=== PATIENT | male | born 1995 | race Caucasian/White ===

== ENCOUNTER 2017-06-05 19:27 | Inpatient (IN) | payer OTHER ==
[~2017-06-05] VITALS: Ht 182.9 cm; Wt 82.1 kg
[2017-06-05] MEDS ORDERED: HYDROMORPHONE 1 MG/1 ML DISP.SYRIN IV ONE ×3 (19:45→21:30)
[2017-06-05] MEDS ORDERED: IV NORMAL SALINE 1000 ML BAG IV ONE ×2 (19:45→20:45)
[2017-06-05] MEDS ORDERED: ONDANSETRON 4 MG/2 ML VIAL IV ONE (19:45)
[2017-06-05] MEDS ORDERED: PROPOFOL 200 MG/20 ML BOTTLE IV ONE (19:45)
[2017-06-05] MEDS ORDERED: ONDANSETRON 4 MG/2 ML VIAL ONE (19:55)
[2017-06-05] MEDS ORDERED: HYDROMORPHONE 2 MG/1 ML DISP.SYRIN ONE ×4 (19:55→23:45)
[2017-06-05] MEDS ORDERED: PROPOFOL 200 MG/20 ML BOTTLE ONE (20:19)
--- NOTE | 2017-06-05 20:33 | NUR ---
Placed a short leg and sterrup on left leg as ordered by Dr Mares
--- NOTE | 2017-06-05 20:35 | NUR ---
Patient awake and talking with no distress noted
[2017-06-05 20:48] LABS: BASOPHILS # (AUTO) 0.1 K/uL (0.0-8.0); BASOPHILS % (AUTO) 0.7 % (0.0-2.0); EOSINOPHILS # (AUTO) 0.1 K/uL (0.0-0.7); EOSINOPHILS % (AUTO) 1.7 % (0.0-7.0); HEMATOCRIT 45.2 % (40-50); HEMOGLOBIN 14.9 G/DL (14.0-18.0); LYMPHOCYTES # (AUTO) 2.8 K/UL (0.8-4.8); LYMPHOCYTES % (AUTO) 33.4 % (20.5-51.5); MEAN CORPUSCULAR HGB CONC 33 g/dL (32.0-37.0); MEAN CORPUSCULAR VOLUME 96.8 FL (82.0-92.0); MONOCYTES # (AUTO) 0.5 K/UL (0.1-1.30); MONOCYTES % (AUTO) 6.1 % (0.0-11.0); NEUTROPHILS # (AUTO) 4.9 K/UL (1.8-8.9); NEUTROPHILS % (AUTO) 58.1 % (38.5-71.5); PLATELET COUNT (AUTO) 210 K/UL (150-450); RED BLOOD CELL COUNT(AUTO) 4.67 MIL/UL (4.7-6.1); WHITE BLOOD COUNT (AUTO) 8.4 K/UL (4.0-11.2)
[2017-06-05 20:56] LABS: POTASSIUM 3.5 mmol/L (3.5-5.1)
--- NOTE | 2017-06-05 21:05 | NUR ---
Dr Mares spoke with Dr Freddy gomez promotions assistant. Will eval patient in AM
--- NOTE | 2017-06-05 21:39 | NUR ---
Dr Mares spoke with Dr Villagomez for admission of patient
--- NOTE | 2017-06-05 21:50 | NUR ---
PATIENT IN ROOM WITH NO DISTRESS NOTED. INTERACTING WITH FRIENDS AT BEDSIDE
--- NOTE | 2017-06-05 22:08 | NUR ---
Transfered to 2nd floor Med Surg via jun
--- NOTE | 2017-06-05 22:10 | NUR ---
RECEIVED PATIENT FROM ER VIA GURNEY. PATIENT IS ALERT, IN NO ACUTE DISTRESS. PATIENT IS ADMITTED TO [facility] UNDER THE CARE OF DR. MORAN. DX: LEFT ANKLE DISLOCATION. BELONGING LIST DONE, ADMISSION PROCESS AND CARE PLAN INITIATED. MD NOTIFIED FOR NEW ADMISSION ORDERS. SAFETY MEASURES IN PLACE. CALL LIGHT WITHIN REACH, BED ALARM ON. WILL CONTINUE TO MONITOR. Addendum: 06/06/17 at 0137 by KARLA CRENSHAW RN ADD: SHORT LEG SPLINT AND STIRRUP ON LEFT LEG INTACT. PT ABLE TO WIGGLE TOES, NO C/O OF NUMBNESS AND TINGLING.
[2017-06-05] MEDS ORDERED: CEFAZOLIN 1 G VIAL IV ONE (22:30)
[2017-06-05] MEDS ORDERED: POTASSIUM CHLORIDE 20 MEQ in IV D5 1/2 NS 1000 ML 1,000 ML IV PRN (22:30)
[2017-06-05 22:41] VITALS: BP 151/92
[2017-06-05] MEDS ORDERED: ACETAMINOPHEN 650 MG SUPP.RECT RC PRN (22:45)
[2017-06-05] MEDS ORDERED: ONDANSETRON 4 MG/2 ML VIAL IV PRN (22:45)
--- NOTE | 2017-06-05 23:30 | NUR ---
PATIENT SIGNED CONSENT FOR PROCEDURE TOMORROW MORNING. COPY OF SIGNED CONSENT FORM PLACED IN PATIENT'S CHART.
[2017-06-05] MEDS: HYDROMORPHONE 1 MG/1 ML DISP.SYRIN IV PRN (23:36)
--- NOTE | 2017-06-06 | NUR ---
PT KEPT NPO AFTER MIDNIGHT FOR PROCEDURE IN THE MORNING PER MD'S ORDER.
[2017-06-06] MEDS ORDERED: CEFAZOLIN 1 G VIAL ONE (00:17)
[2017-06-06 03:45] LABS: *BILIRUBIN,URIN NEGATIVE (NEGATIVE); *BLOOD, URINE NEGATIVE (NEGATIVE); *CLARITY,URINE CLEAR (CLEAR); *COLOR,URINE YELLOW (YELLOW); *KETONES,URINE NEGATIVE (NEGATIVE); *PROTEIN,URINE NEGATIVE (NEGATIVE); *UROBILINOGEN,URINE 0.2 E.U./dl (NORMAL); LEUKOCYTE ESTERASE ,URINE NEGATIVE (NEGATIVE); NITRITE, URINE NEGATIVE (NEGATIVE); UGLUCOSE NEGATIVE (NEGATIVE)
[2017-06-06 04:00] LABS: BACTERIA,URINE NONE SEEN /HPF (NONE SEEN); RBC,URINE NONE SEEN /HPF (0-3); SQUAMOUS EPITHELIAL CELL,UR NONE SEEN /HPF (NONE SEEN); WBC,URINE 0-3 /HPF (0-3)
[2017-06-06] MEDS: HYDROMORPHONE 1 MG/1 ML DISP.SYRIN IV PRN (04:33)
[2017-06-06] MEDS ORDERED: HYDROMORPHONE 2 MG/1 ML DISP.SYRIN ONE (04:41)
[2017-06-06] MEDS ORDERED: CEFAZOLIN 1 G in PREMIXED 1 EACH IV SCH (05:30)
[2017-06-06] MEDS ORDERED: CEFAZOLIN 1 G in PREMIXED 1 EACH IV ONE (05:30)
[2017-06-06 06:09] VITALS: BP 127/87
--- NOTE | 2017-06-06 06:10 | NUR ---
PT TRANSPORTED BY OR STAFF/TEAM TO OR FOR PROCEDURE. PER DR. VIGIL, ANCEF 1 GRAM TO BE GIVEN IN OR. ANCEF IVPB WAS SET UP AND ENDORSED TO OR STAFF/TEAM. PATIENT IS ALERT, IN NO ACUTE DISTRESS.
[2017-06-06] MEDS ORDERED: FENTANYL CITRATE 100 MCG/2 ML AMPUL ONE (06:35)
[2017-06-06] MEDS ORDERED: MIDAZOLAM HCL 2 MG/2 ML VIAL ONE (06:36)
--- NOTE | 2017-06-06 06:45 | NUR ---
PLACED PATIENT'S PHONE IN THE CONTRABAND LOCKER #4 FOR SAFE KEEPING. WITNESSED: JEM CORTÉS RN. WILL ENDORSE TO THE ONCOMING SHIFT RN.
[2017-06-06] MEDS ORDERED: SUCCINYLCHOLINE CHLORIDE 200 MG/10 ML VIAL ONE (06:49)
[2017-06-06] MEDS ORDERED: ONDANSETRON 4 MG/2 ML VIAL ONE (07:17)
[2017-06-06 07:22] LABS: BILIRUBIN,TOTAL 1.1 mg/dL (0.2-1.0); MAGNESIUM 1.8 mg/dL (1.8-2.4); PHOSPHOROUS 3.8 mg/dL (2.5-4.9); POTASSIUM 4.3 mmol/L (3.5-5.1); TOTAL PROTEIN, SERUM 6.9 g/dL (6.4-8.2)
[2017-06-06] MEDS ORDERED: IV LACTATED RINGERS SOLUTION 1,000 ML IV PRN (07:30)
[2017-06-06] MEDS ORDERED: MEPERIDINE 25 MG/1 ML DISP.SYRIN ONE ×2 (07:35→07:49)
[2017-06-06 07:41] LABS: BASOPHILS % (AUTO) 0.2 % (0.0-2.0); EOSINOPHILS # (AUTO) 0.1 K/uL (0.0-0.7); HEMATOCRIT 44.5 % (40-50); HEMOGLOBIN 14.9 G/DL (14.0-18.0); LYMPHOCYTES # (AUTO) 1.4 K/UL (0.8-4.8); LYMPHOCYTES % (AUTO) 14.5 % (20.5-51.5); MEAN CORPUSCULAR HGB CONC 34 g/dL (32.0-37.0); MEAN CORPUSCULAR VOLUME 98.2 FL (82.0-92.0); MONOCYTES # (AUTO) 0.8 K/UL (0.1-1.30); MONOCYTES % (AUTO) 8.1 % (0.0-11.0); NEUTROPHILS # (AUTO) 7.5 K/UL (1.8-8.9); NEUTROPHILS % (AUTO) 76.2 % (38.5-71.5); PLATELET COUNT (AUTO) 208 K/UL (150-450); RED BLOOD CELL COUNT(AUTO) 4.53 MIL/UL (4.7-6.1); WHITE BLOOD COUNT (AUTO) 9.8 K/UL (4.0-11.2)
[2017-06-06] MEDS ORDERED: ONDANSETRON 4 MG/2 ML VIAL IV PRN (10:30)
[2017-06-06] MEDS ORDERED: HYDROMORPHONE 1 MG/1 ML DISP.SYRIN IV PRN (10:30)
[2017-06-06 11:29] VITALS: BP 142/91
[2017-06-06] MEDS: HYDROMORPHONE 2 MG/1 ML DISP.SYRIN IV PRN ×2 (11:30→17:04)
[2017-06-06] MEDS ORDERED: LIDOCAINE-MPF 2% 5 ML VIAL MC ONE (14:29)
[2017-06-06] MEDS ORDERED: IV NORMAL SALINE 1000 ML BAG IV ONE (14:29)
[2017-06-06] MEDS ORDERED: PROPOFOL 200 MG/20 ML BOTTLE IV ONE (14:29)
[2017-06-06] MEDS ORDERED: SEVOFLURANE 250 ML BOTTLE IH ONE (14:29)
[2017-06-06 16:00] VITALS: BP 129/82
[2017-06-06] MEDS: PANTOPRAZOLE SODIUM 40 MG TABLET.DR PO SCH (16:58)
[2017-06-06 20:00] VITALS: BP 136/87
--- NOTE | 2017-06-06 20:00 | NUR ---
Pt Alert, awake, and oriented x 4. Able to folllow simple commands. Limited ROM to left lower extremity. No swelling, numbness, or tingling. Pain noted 3/10. Refused pain medications at this time. Call light placed within reach. Ice pack applied to affected area.
--- NOTE | 2017-06-07 01:00 | NUR ---
Pt asleep at this time. No acute distress. Continue to monitor for pain management. Left lower extremity elevated on pillows.
[2017-06-07 05:01] VITALS: BP 134/75
[2017-06-07 06:30] LABS: BASOPHILS % (AUTO) 0.2 % (0.0-2.0); EOSINOPHILS # (AUTO) 0.1 K/uL (0.0-0.7); HEMATOCRIT 47.6 % (40-50); HEMOGLOBIN 16.3 G/DL (14.0-18.0); LYMPHOCYTES # (AUTO) 1.5 K/UL (0.8-4.8); LYMPHOCYTES % (AUTO) 17.2 % (20.5-51.5); MEAN CORPUSCULAR HEMOGLOBIN 33.3 UUG (27.0-31.0); MEAN CORPUSCULAR HGB CONC 34 g/dL (32.0-37.0); MONOCYTES # (AUTO) 0.9 K/UL (0.1-1.30); MONOCYTES % (AUTO) 10.2 % (0.0-11.0); NEUTROPHILS # (AUTO) 6.4 K/UL (1.8-8.9); NEUTROPHILS % (AUTO) 71.4 % (38.5-71.5); PLATELET COUNT (AUTO) 199 K/UL (150-450); RED BLOOD CELL COUNT(AUTO) 4.91 MIL/UL (4.7-6.1); WHITE BLOOD COUNT (AUTO) 8.9 K/UL (4.0-11.2)
[2017-06-07] MEDS: PANTOPRAZOLE SODIUM 40 MG TABLET.DR PO SCH (06:37)
[2017-06-07] MEDS: HYDROMORPHONE 2 MG/1 ML DISP.SYRIN IV PRN (06:37)
[2017-06-07 06:50] LABS: THYROID STIMULATING HORMONE 1.018 mIU/mL (0.358-3.740)
[2017-06-07 06:51] LABS: CREATININE 0.9 mg/dL (0.6-1.3); PHOSPHOROUS 4.1 mg/dL (2.5-4.9); POTASSIUM 4.4 mmol/L (3.5-5.1); TOTAL PROTEIN, SERUM 7.7 g/dL (6.4-8.2)
--- NOTE | 2017-06-07 07:30 | NUR ---
Patient noted awake, alert and oriented x 4 with no signs and symptoms of discomforts at this time. No signs and symptoms of distress. All needs attended and anticipated. Call light placed within reach. Encouraged patient to use call light whenever assistance is needed. Will continue to monitor closely.
--- NOTE | 2017-06-07 10:00 | NUR ---
Patient noted awake alert and oriented, lying on bed on a semi aguila's position, watching television with no moaning, no grimace or any s/sx of discomforts at this time. Noted left leg elevated on pillow. No s/sx of distress. All needs attended and anticipated. Call light noted to be within reach. Encouraged patient to use call light whenever assistance is needed. Will closely monitor the patient.
[2017-06-07 11:17] VITALS: BP 129/85
[2017-06-07] MEDS ORDERED: HYDROCODONE/APAP 5-325MG TABLET PO PRN (12:00)
[2017-06-07] MEDS ORDERED: HYDR-3326 PO (12:00)
--- NOTE | 2017-06-07 14:30 | NUR ---
Patient was discharged home with family as ordered in stable condition with no signs and symptoms of any discomforts or distress. To follow up with Orthopedic and PMD. Health teachings and medications were discussed by pharmacist, patient verbalized understanding. Patient was picked up by father via private car in stable condition. All belongings complete no missing items.
== END 2017-06-07 14:30 | disposition home or self-care (01) | DRG 563 ==
LOC: ER 19:28 → MED 21:57
PROVIDERS: ADMIT Internal Medicine; ATTEND Internal Medicine
PROC: 0SSGXZZ Reposition Left Ankle Joint, External Approach (ICD-10-PCS; principal; 2017-06-06 06:23)
DX: S93.05XA Dislocation of left ankle joint, initial encounter (principal); E83.51 Hypocalcemia; E78.5 Hyperlipidemia, unspecified; V00.131A Fall from skateboard, initial encounter; E80.6 Other disorders of bilirubin metabolism; R74.0 Nonspecific elevation of levels of transaminase and lactic acid dehydrogenase [LDH]; Y93.51 Activity, roller skating (inline) and skateboarding; Y92.89 Other specified places as the place of occurrence of the external cause; Y99.9 Unspecified external cause status; S92.022A Displaced fracture of anterior process of left calcaneus, initial encounter for closed fracture; R73.9 Hyperglycemia, unspecified; F12.90 Cannabis use, unspecified, uncomplicated; F17.210 Nicotine dependence, cigarettes, uncomplicated; R03.0 Elevated blood-pressure reading, without diagnosis of hypertension
CPT/HCPCS: 36415; 71010; 73600; 73610; 73630; 76000; 83735; 84100; 84443; 85025; 85730; A4663; J0330; J0690; J1170; J2175; J2250; J2405; J3010; J3480; J3490; J7030